=== PATIENT | female | born 2000 | race Hispanic/Latino ===

== ENCOUNTER 2021-01-18 08:58 | Inpatient (IN) | payer OTHER ==
--- OUTSIDE RECORDS SUMMARY | 2021-01-18 09:20 | XMS REPORT | Continuity of Care Document ---
:2000 Author Organization [facility] t Address [address] [place] [address] Dr. Ortega [address] [place] [id number] Care Team Providers Name Role Phone Unavailable Unavailable Unavailable Problems This patient has no known problems. Allergies, Adverse Reactions, Alerts This patient has no known allergies or adverse reactions. Medications This patient has no known medications. Procedures This patient has no known procedures. Results This patient has no known results.
[2021-01-18] MEDS ORDERED: Ringers Lactate 1,000 ML IV PRN (09:40)
[2021-01-18] MEDS ORDERED: OXYTOCIN/LR 20 UNIT/1,000 ML BAG IV SCH ×2 (10:00→12:00)
[2021-01-18] MEDS ORDERED: Ringers Lactate 1,000 ML IV SCH (10:00)
[2021-01-18] MEDS ORDERED: LIDOCAINE 1% MPF 30 ML VIAL ONE (10:26)
[2021-01-18] MEDS ORDERED: CARBOPROST TROME 250 MCG/ML IM ONE (10:27)
[2021-01-18] MEDS ORDERED: METHYLERGONOVINE 0.2MG/ML AMP IM ONE (10:27)
[2021-01-18 10:49] LABS: Absolute Lymphocytes (CBC) 2.6 K/uL (0.7-4.9); Basophils % 0.3 % (0-1.3); Hematocrit 35.8 % (36.0-45.0); Lymphocytes % 26.1 % (15.3-44.8); MPV 10.6 fL (7.6-11.3); RBC Red Blood Cell Count 4.04 M/uL (3.86-4.86)
[2021-01-18 10:59] LABS: Urine Appearance CLEAR (Clear); Urine Bilirubin NEGATIVE (Negative); Urine Blood TRACE (Negative); Urine Color YELLOW (Yellow); Urine Glucose NEGATIVE (Negative); Urine Protein NEGATIVE (Negative); Urine pH 6.5 (5.0-7.0)
[2021-01-18 11:37] LABS: Urine Microscopic Reflex ORDER UMIC
[2021-01-18 11:40] LABS: Urine Bacteria 20-50 /HPF (<20); Urine Mucus 1+ /HPF (NONE SEEN); Urine RBC <5 /HPF (NONE SEEN)
[2021-01-18] MEDS ORDERED: ACETAMINOPHEN 500 MG TAB PO PRN (11:50)
[2021-01-18] MEDS ORDERED: DIPHENHYDRAMINE 25 MG TAB/CAP PO PRN (11:50)
[2021-01-18] MEDS ORDERED: BISACODYL 10 MG RECTAL SUPP PR PRN (11:50)
[2021-01-18] MEDS ORDERED: Oxycodone HCl/Acetaminophen 1 TAB TAB PO PRN ×2 (11:50)
[2021-01-18] MEDS ORDERED: DOCUSATE NA/SENNA CONC 1 TAB PO PRN (11:50)
[2021-01-18] MEDS ORDERED: IBUPROFEN 600 MG TAB PO PRN (12:25)
[2021-01-18 14:00] VITALS: BMI 26.0
--- NOTE | 2021-01-18 15:34 | PREOPHP ---
Date of Admission: 01/18/2021 History Of Present Illness: A 20-year-old 2, para 1, 39 weeks gestation. Rh positive, immun e to rubella, negative strep screen, negative COVID, comes in active in labor, 6 cm on admission with bulging membranes. Family History: Noncontributory. Allergies: SHE HAS NO ALLERGIES. Social History: Does not smoke. Physical Examination: HEENT: Clear pupils equal, round, reactive to light and accommodation. Conjunctivae well perfused. No oral, lingual, or buccal lesions. Chest and Lungs: Clear. Heart: Without murmurs, thrills, heaves, rubs. Breasts: Not examined. Abdomen: Term size. Extremities: Clear without edema, cyanosis, or clubbing. Pelvic: As stated advanced dilation and proceeding rapidly. Plan: Admit for stabilization and delivery. RD/MARCO Voice ID: [id number]
--- NOTE | 2021-01-18 15:34 | OP ---
Surgeon: Gal Damon MD A 20-year-old 2, para 1, at 39 weeks came in active labor, went rapidly to complete. Used La maze breathing techniques to best advantage. Rh positive, immune to Rubella. Negative beta strep sc reen. Second stage of approximately 15 to 20 minutes. Spontaneous vaginal delivery of an estimated 7.5 to 8 pounds female, Apgars 9 and 9. Very small first-degree laceration on the right side of the introitus, sutured with 3-0 chromic, 3-4 running locked sutures under local infiltration. Uriel king of the placenta, which was examined, noted to be intact and normal. 350 cc are less blood lo ss. Tolerated all procedures well. Natural child Final Diagnoses: Term intrauterine , vaginal delivery. RD/MARCO Voice ID: [id number] Report ID: [id number]
[2021-01-18 22:42] LABS: RPR (Rapid Plasma Reagin) NON-REACT (NON-REACT)
[2021-01-19] MEDS ORDERED: Ringers Lactate 1,000 ML IV ONE (03:22)
--- NOTE | 2021-01-19 13:29 | DS ---
20-year-old 2, para 1, 39 weeks, came in an active labor. Went rapidly to complete. Deliver y of a 7 pounds 14 ounces female, Apgars 9 and 9. Very small first-degree laceration requiring 3 run cris locked stitches of 3-0 chromic under local infiltration. Schultze delivery of the placenta. Es timated blood loss 350 cc or less. The patient is Rh positive, immune to rubella. Negative strep. Negative COVID. afebrile, ambulating and voiding. Lochia is normal. She will be dismiss ed when baby is allowed to go home. She will report back to my office in 6 weeks for followup to rep ort any temperature elevation of 100 degrees or greater, severe pain, heavy bleeding, or any other ty pe of abnormalities. She requests no analgesics on dismissal. She has had her Tdap shot already. Final Diagnoses: Term intrauterine at 39 weeks, spontaneous labor, vaginal delivery. RD/MARCO Voice ID: [id number] Report ID: [id number]
[2021-01-19 14:45] VITALS: BP 105/62; TEMP 98.3
[2021-01-21 02:32] LABS: HBsAG Nonreactive (Nonreactive)
== END 2021-01-19 14:00 | disposition home or self-care (01) | DRG 807 ==
LOC: L&D 08:58 → 2ND-WC 09:17
PROVIDERS: ADMIT Specialist; ATTEND Specialist
PROC: 10907ZC Drainage of Amniotic Fluid, Therapeutic from Products of Conception, Via Natural or Artificial Opening (ICD-10-PCS; principal; 2021-01-18)
PROC: 10E0XZZ Delivery of Products of Conception, External Approach (ICD-10-PCS; 2021-01-18)
PROC: 0HQ9XZZ Repair Perineum Skin, External Approach (ICD-10-PCS; 2021-01-18)
DX: O70.0 First degree perineal laceration during delivery (principal); Z37.0 Single live birth; Z3A.39 39 weeks gestation of pregnancy; Z20.822 Contact with and (suspected) exposure to COVID-19
CPT/HCPCS: 36415; 81003; 81015; 85025; 86592; 86901; 87086; 87088; 87340; J2210; J2590; J7120; U0003